=== PATIENT | female | born 1995 | race Caucasian/White ===

== ENCOUNTER 2022-11-10 06:15 | Day surgery (SDC) | payer OTHER, SELFPAY ==
[2022-11-10] VITALS (7 sets, daily range): BP systolic 107–115; BP diastolic 62–74; PULSE 74–82; RESP 16–18; TEMP 36.5–36.8; O2SAT 94–100; BMI 32.1
[2022-11-10] MEDS: ETHYL CHLORIDE 1 APPLICATION 1 APPLIC TOPICAL (07:00)
[2022-11-10] MEDS: BUPIVACAINE 0.5% 30 ML INJECTION (07:00)
--- NOTE | 2022-11-10 07:11 | SUR.PREOP ---
SAME DAY SURGERY LOCAL INJECTION SITE VERIFICATION WAS PERFORMED BY SURGEON/PA AND PATIENT PRIOR TO LOCAL ANESTHETIC BEING INJECTED TO OPERATIVE SITE.
--- NOTE | 2022-11-10 08:04 | PM.ORPRC ---
Procedure Note Date of procedure: 11/10/22 Procedure: PREOPERATIVE DIAGNOSIS: 1. Left carpal tunnel syndrome POSTOPERATIVE DIAGNOSIS: 1. Left carpal tunnel syndrome PROCEDURE: 1. Left open carpal tunnel release SURGEON: Sean Rico MD. COMMERCIAL LOAN MANAGER: YESSENIA Roach ANESTHESIA: Local anesthetic (50:50 mixture of 2% lidocaine with epi and 0.5% marcaine plain) IMPLANTS: None EBL: 2 mL TOURNIQUET: None COMPLICATIONS: None evident INDICATIONS: The patient is a pleasant 27-year-old female who has experienced left hand numbess/tingling affecting the radial 3.5 digits for multiple months. It has progressively gotten worse. 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 Nonoperative management has been tried and failed, and therefore surgery was recommended. DESCRIPTION OF PROCEDURE: Following a thorough discussion of risks, benefits, and alternatives consent was obtained and the operative extremity was marked. The patient was brought to the operating room and placed supine on the operating table. Local anesthesia induction was undertaken in preop holding. No antibiotics were administered as this was planned to be a local case only. Proper time-out was performed identifying proper patient, site, and procedure. The operative extremity was prepped and draped in the appropriate sterile fashion using ChloraPrep. An incision was made in line with the radial border of the ring finger beginning 1 cm distal to the distal wrist crease and progressing for another 2.5cm distal. Caution was taken to stay proximal to Renee's cardinal line. Sharp incision through the skin, subcutaneous tissue, and palmar fascia was performed. The thenar musculature was bluntly elevated off the transverse carpal ligament. The ligament was directly visualized, and divided sharply with a 15 blade. This was released from its most proximal to the most distal extent. Metzenbaum scissor was also utilized to release the fascia extension proximally. We confirmed complete release of the transverse carpal ligament. Closure was performed with 4-O nylon in interrupted fashion. Soft dressings were applied, and the patient was transferred to the recovery room in stable condition. PLAN: 1. Encourage elevation of the operative extremity. 2. Range of motion of the fingers and hand/wrist as tolerated. 3. Ibuprofen/acetaminophen and/or Percocet as needed for pain control. 4. Follow up with PA visit or nurse visit in 12-16 days for wound check and suture removal.
[2022-11-10] MEDS: NEOMYCIN/BACITRACIN/POLYMYXIN B 1 APPLIC TOPICAL (08:05)
== END 2022-11-10 08:46 | disposition home or self-care (01) ==
PROVIDERS: PCP Advanced Practice Midwife; Visit Provider Orthopaedic Surgery Sports Medicine
PROC: (CPT 64721; principal; 2022-11-10 07:30)
DX: G56.02 Carpal tunnel syndrome, left upper limb (principal)
CPT/HCPCS: 64721; J3490

== ENCOUNTER 2023-01-05 06:37 | Day surgery (SDC) | payer OTHER, SELFPAY ==
[2023-01-05] VITALS (8 sets, daily range): BP systolic 106–117; BP diastolic 59–75; PULSE 68–80; RESP 12–16; TEMP 36.6–36.7; O2SAT 97–100; BMI 32.1
[2023-01-05] MEDS: BUPIVACAINE 0.5% 30 ML INJECTION (07:10)
--- NOTE | 2023-01-05 07:52 | PM.ORPRC ---
Procedure Note Date of procedure: 01/05/23 Procedure: PREOPERATIVE DIAGNOSIS: 1. Right carpal tunnel syndrome POSTOPERATIVE DIAGNOSIS: 1. Right carpal tunnel syndrome PROCEDURE: 1. Right open carpal tunnel release SURGEON: Sean Rico MD. MOLDING MACHINE OPERATOR: Kimani Carter PA-C ANESTHESIA: Local anesthetic (50:50 mixture of 1% lidocaine with epi and 0.5% marcaine plain) - 10ml total IMPLANTS: None EBL: 2 mL TOURNIQUET: None COMPLICATIONS: None evident INDICATIONS: The patient is a pleasant 27-year-old female who has experienced right hand numbess/tingling affecting the radial 3.5 digits for multiple months. It has progressively gotten worse. Nonoperative management has been tried and failed, and therefore surgery was recommended. Of note, she had the contralateral left open carpal tunnel release approximately 2 months ago. She notes she feels tremendously better on that side already. Less numbness tingling. Less pain/discomfort. DESCRIPTION OF PROCEDURE: Following a thorough discussion of risks, benefits, and alternatives consent was obtained and the operative extremity was marked. The patient was brought to the operating room and placed supine on the operating table. Local anesthesia induction was undertaken in preop holding. No antibiotics were administered as this was planned to be a local case only. Proper time-out was performed identifying proper patient, site, and procedure. The operative extremity was prepped and draped in the appropriate sterile fashion using ChloraPrep. An incision was made in line with the radial border of the ring finger beginning 1 cm distal to the distal wrist crease and progressing for another 2.5cm distal. Caution was taken to stay proximal to Renee's cardinal line. Sharp incision through the skin, subcutaneous tissue, and palmar fascia was performed. The thenar musculature was bluntly elevated off the transverse carpal ligament. The ligament was directly visualized, and divided sharply with a 15 blade. This was released from its most proximal to the most distal extent. Metzenbaum scissor was also utilized to release the fascia extension proximally. We confirmed complete release of the transverse carpal ligament. Closure was performed with 4-O nylon in interrupted fashion. Soft dressings were applied, and the patient was transferred to the recovery room in stable condition. PLAN: 1. Encourage elevation of the operative extremity. 2. Range of motion of the fingers and hand/wrist as tolerated. 3. Ibuprofen/acetaminophen and/or Percocet as needed for pain control. 4. Follow up with PA visit or nurse visit in 12-16 days for wound check and suture removal.
[2023-01-05] MEDS: NEOMYCIN/BACITRACIN/POLYMYXIN B 1 APPLIC TOPICAL (08:00)
== END 2023-01-05 08:16 | disposition home or self-care (01) ==
PROVIDERS: PCP Advanced Practice Midwife; Visit Provider Orthopaedic Surgery Sports Medicine
PROC: (CPT 64721; principal; 2023-01-05 07:45)
DX: G56.01 Carpal tunnel syndrome, right upper limb (principal)
CPT/HCPCS: 64721; J3490

== ENCOUNTER 2023-09-21 10:49 | Outpatient (CLI) | payer OTHER, SELFPAY | END 2023-09-21 10:50 | disposition home or self-care (01) | PROVIDERS: PCP Advanced Practice Midwife; Visit Provider Advanced Practice Midwife | DX: Z13.220 Encounter for screening for lipoid disorders (principal) | CPT/HCPCS: 80061 ==

== ENCOUNTER 2024-02-22 16:42 | Emergency (ER) | payer OTHER, SELFPAY ==
[2024-02-22 17:37] VITALS: BP 110/73; PULSE 95; RESP 18; TEMP 36.7; O2SAT 100; BMI 32.1
--- NOTE | 2024-02-22 18:13 | XR_ITS ---
Patient: VIVIENNE LARKIN Facility:?[facility] Patient ID:?[id number] Site Patient ID:?[id number]. Site :?1994 Study:?XRay-Extremity Left 3 VIEWS-02/22/2024 6:33:10 PM Ordering Physician:HILTON Final Report: Indication: Trauma. Technique: Left foot, 3 views. Comparison: None. Findings: Bones: Alignment is normal. No fractures or bone lesions. Joint spaces: Unremarkable. Soft tissues: Unremarkable. Impression: No sign of acute injury. Dictated by Aidan Blanc MD @ 02/22/2024 7:02:16 PM Signed by:?Aidan Blanc MD @02/22/2024 7:02:16 PM (Electronic Signature)
--- NOTE | 2024-02-22 19:19 | ED_ITS ---
HPI - Extremity Injury (Lower) General Date Seen: 02/22/24 Chief Complaint: Extremity Pain/Injury, Lower Stated Complaint: L foot injury Time Seen by Provider: 02/22/24 19:12 Source: patient Mode of arrival: ambulatory Limitations: no limitations History of Present Illness HPI Narrative: Patient is a 28-year-old female presenting for left foot pain. She states about 16:30 her horse stepped on her foot and has since had lot of pain to the top of the foot. Does have some pain with movement of her toes but is able to move it. Denies any numbness. States pain is just to the top of the foot where the horse stepped. No other injuries noted. Related Data Previous Rx's Medication Instructions Recorded escitalopram oxalate 20 mg tablet 20 mg PO QDAY #90 tabs 11/30/23 (Lexapro) Allergies Allergy/AdvReac Type Severity Reaction Status Date / Time No Known Allergies Allergy Verified 10/06/23 09:59 Review of Systems Narrative: Pertinent systems reviewed and were negative unless stated in HPI PFSH PFSH Medical History Anxiety ?F41.9 - Anxiety disorder, unspecified (ICD-10) Depression ?F32.A - Depression, unspecified (ICD-10) Surgical History History of carpal tunnel surgery of right wrist (01/05/23) ?Z98.890 - Other specified postprocedural states (ICD-10) History of carpal tunnel surgery of left wrist (11/10/22) ?Z98.890 - Other specified postprocedural states (ICD-10) Family History Paternal Grandmother Breast cancer Diabetes Paternal Grandfather Diabetes Social History What is your current living situation?: I presently have a place to live Problems where you live: no known problems In the past 12 months, utilities in danger of being shut off: no In past 12 months, lack of transportation kept you from medical appts, meetings, work, or getting things needed for daily living: no In the past 12 mos, have been you worried that your food would run out before you had money to buy more?: sometimes true In the past 12 mos, the food you bought just didn't last and you didn't have money to buy more?: never true Smoking Status: Never smoker How often does anyone, including family, friends and others, physically hurt you : never How often does anyone, including family, friends and others, insult or talk down to you: never How often does anyone, including family, friends and others, threaten you with harm: never How often does anyone, including family, friends and others, scream or curse at you: never Little interest or pleasure in doing things: several days Feeling down, depressed, or hopeless: more than half the days Exam Narrative: Exam Narrative: Const: Well-nourished, Well-developed, in mild distress Eyes: PERRL, no conjunctival injection, and symmetrical lids HENT: Atraumatic external nose and ears. Moist mucous membranes. MSK:Extremities w/o deformity, Normal Active ROM, tenderness to palpation to the top of the left foot about 2 cm proximal to the great toe. No tenderness noted to the sole of the foot. Skin: Warm, Dry. No rashes or lesions. Neuro: Normal Muscle tone, No focal neurological deficits. Psych: Awake, Alert, & Oriented x3. Appropriate mood and affect. Const: Vital Signs, click to edit/add: Vital Signs - 24 hr 02/22/24 17:37 Temperature 98.1 F Pulse Rate [Right Pulse Oximeter] 95 Respiratory Rate 18 Blood Pressure [Ri ght Upper Arm] 110/73 Pulse Oximetry 100 Oxygen Delivery Me thod Room Air Course Vital Signs Vital signs: Initial Vital Signs Temperature 98.1 F 02/22/24 17:37 Temperature Source Temporal Artery Scan 02/22/24 17:37 Pulse Rate 95 02/22/24 17:37 Respiratory Rate 18 02/22/24 17:37 Blood Pressure 110/73 02/22/24 17:37 Blood Pressure Mean 85 02/22/24 17:37 Blood Pressure Position Sitting 02/22/24 17:37 Pulse Oximetry 100 02/22/24 17:37 Oxygen Delivery Method Room Air 02/22/24 17:37 Vital Signs Temperature 98.1 F 02/22/24 17:37 Pulse Rate 95 02/22/24 17:37 Respiratory Rate 18 02/22/24 17:37 Blood Pressure 110/73 02/22/24 17:37 Pulse Oximetry 100 02/22/24 17:37 Oxygen Delivery Method Room Air 02/22/24 17:37 Temperature 98.1 F 02/22/24 17:37 Pulse Rate 95 02/22/24 17:37 Respiratory Rate 18 02/22/24 17:37 Blood Pressure 110/73 02/22/24 17:37 Pulse Oximetry 100 02/22/24 17:37 Oxygen Delivery Method Room Air 02/22/24 17:37 MDM - Extremity Injury (Lower) MDM Narrative Medical decision making narrative: Patient is a 28-year-old female presenting after a horse stepped on her foot. She is neurovascular intact. X-rays reviewed by myself and the radiologist showing no acute fractures. She is otherwise doing well. Will be given an Arnaldo wrap and will be discharged home. She is agreeable to this plan. Imaging Data Left foot x-ray: Attestation: I have reviewed the pertinent imaging results. Radiologist's impression: No sign of acute injury. Dictated by Aidan Blanc MD @ 02/22/2024 7:02:16 PM Discharge Plan Discharge Clinical Impression: Strain of foot, left Qualifiers: Encounter type: initial encounter Qualified Code(s): S96.912A - Strain of unspecified muscle and tendon at ankle and foot level, left foot, initial encounter Patient Disposition: Home, Self-Care Condition: Stable Instructions: Foot Sprain (ED) Additional Instructions: Take Tylenol and ibuprofen for pain. Use the Arnaldo wrap as needed for comfort. You are able to have full weight-bearing to that foot with no restrictions. Prescriptions: No Action escitalopram oxalate [Lexapro] 20 mg tablet 20 mg PO QDAY Qty: 90 3RF Follow Up/Referrals: Ankush Lynch MD [Primary Care Provider] - Stand Alone Forms: [facility] [employer] Info Instructions
--- OUTSIDE RECORDS SUMMARY | 2024-02-22 19:32 | XMS_ITS | Clinical Summary ---
Author Name Unknown Organization [facility] Address [place], [place] [address] Care Team Providers Care Drill Press Set Up Operator Radial Name Role Phone Reyes Soni MD Primary Care Provider Allergies No known active allergies Medications Medication Sig Dispensed Refills Start Date End Date Status ondansetron (ZOFRAN ODT) 4 mg disintegrating tabletIndications:Vomi ting during Place 1 tablet on the tongue every 8 hours if needed for Nausea/Vomiting. 10 tablet 05/23/2020 Active ondansetron (ZOFRAN ODT) [address] 1 tablet on the tongue every 6 hours if needed for nausea or vomiting 30 tablet 3 05/28/2020 Active Active Problems Problem Noted Date Diagnosed Date Attention deficit disorder without mention of hy peractivity 06/26/2009 Anxiety state, unspecified 06/26/2009 Unspecified adjustment reaction 06/12/2009 Overview: Further assessment for ADHD Immunizations Name Administration Dates Next Due DTP-HIB 1994,1994,1994 DTaP 09/22/1995 HIB HbOC (HibTITER) 09/22/1995 Hepatitis B (Peds) 07/02/1999,03/01/1999, 999 MMR 07/17/2000,11/03/1995 Oral Polio Vaccine 1994,1994, 994 Tdap 02/05/2006 Social History Tobacco Use Types Packs/Day Years Used Date Smoking Tobacco: Former Comments:smokes outside at m oms and at Dads house its inside Alcohol Use Standard Drinks/Week Comments Not Asked 0 (1 standard drink = 0.6 oz pur e alcohol) Sex and Gender Information Value Date Recorded Sex Assigned at Not on file Gender Identity Not on file Sexual Orientation Not on file Obstetrics History Para Term AB IAB SAB Ectopic Multiple Livin g Live Births 1 Date Outcome GA Total Labor Labor/2nd/3rd Weight Sex Delivery Anes PTL Abeba A1 A5 Name Cl in Last Filed Vital Signs Vital Sign Reading Time Taken Comments Blood Pressure 111/69 05/23/2020 5:03 PM CDT Pulse 75 05/23/2020 5:03 PM CDT Temperature 37.2 ??C (99 ??F) 05/23/2020 5:03 PM CDT Respiratory Rate 18 05/23/2020 5:03 PM CDT Oxygen Saturation 99% 05/23/2020 5:03 PM CDT Inhaled Oxygen Concentration - - Weight 72.9 kg (160 lb 11.2 oz) 05/23/2020 5:03 PM CDT Height 157.5 cm (5' 2) 05/23/2020 5:03 PM CDT Body Mass Index 29.39 05/23/2020 5:03 PM CDT Plan of Treatment Health Maintenance Due Date Last Done Comments Depression screening for age 12+ 2006 HIV for age 15-65 2009 BMI (ht and wt on same day) for age 18+ 2012 Hepatitis C screening for ag e 18-79 2012 Tetanus booster 02/06/2016 02/05/2006 COVID-19 vaccine series (2022- season) 2023 Pap test for age 21-65 01/26/2024 01/25/2021 Influenza for age 9-49 07/03/2024 Tdap Completed 02/05/2006 Pneumococcal series for age 6-64 Aged Out No longer eligible based on patient's age to complete this topic Procedures Procedure Name Priority Date/Time Associated Diagnosis Comments DRAG DOWN THIN PREP PAP SCREEN IMAGED Routine 01/25/2021 10:55 AM CDT from Last 3 Months or Most Recently Relevant to Health Maintenance Results * DRAG DOWN THIN PREP PAP SCREEN IMAGED (01/25/2021 10:55 AM CDT) Case Report Gynecologic Cytology Report ? Case: [id number] ? Authorizing Provider: ??Dora Boateng, LOREN ? Collected: ? 01/25/2021 1055 ? Ordering Location: ? [facility] ?Received: ?01/28/2021 1023 ? First Screen: ?Dayton Cobos ? Specimen: ?DRAG DOWN ThinPrep Vial Screening, Cervical/Vaginal ? 02/05/2021 10:47 AM CDT [facility]- ENTRAL LAB[facility]ATORY INTERPRETATION/ RESULT NEGATIVE FOR INTRAEPITHELIAL LESION OR MALIGNANCY (NIL) (none) 02/05/2021 10:47 AM CDT [facility]- ENTRAL LABORATORY IMEN ADEQUACY Satisfactory for evaluation Endocervical component present 02/05/2021 10:47 AM CDT [facility]AL LAB[facility] HPV REQUEST HPV if ASCUS 02/05/2021 10:47 AM CDT [facility] Date of LMP 02/05/2021 10:47 AM CDT [facility]- ENTRAL LABORATORY Comment:NA Menstrual Status 02/05/2021 10:47 AM CDT [facility]- ENTRAL [facility] Additional Information 02/05/2021 10:47 AM CDT [facility]- ENTRAL LABORATORY Comment: Interpreted at [facility] - [address], [place] [address] Automated Review Successful 02/05/2021 10:47 AM CDT [facility] Comment:Specimen processed s uccessfully by automated wood turner device, ThinPrep Imaging System, [employer] Note The pap test is a screening technique, not a diagnostic procedure. It is used primarily to screen for squamous cancers and precursor lesions. Published studies have shown that it is subject to both false negative and false positive results. The pap test should not be used as the sole means to diagnose or exclude pre-malignant and malignant lesions. 02/05/2021 10:47 AM CDT [facility] Other (Cervical/Vagina l) 01/25/2021 10:55 AM CDT 01/28/2021 10:23 AM CDT Dora Boateng CNM PATHOLOGY/CYTOLOGY [facility] [address] [place] [address], from Last 3 Months or Most Recently Relevant to Health Maintenance Care Teams Drill Press Set Up Operator Radial Relationship Specialty Start Date End Date Reyes Soni MD PCP - General Obstetrics and Gynecology 05/23/20
== END 2024-02-22 19:56 | disposition home or self-care (01) ==
LOC: ED 19:31
PROVIDERS: Emergency Provider Student in an Organized Health Care Education/Training Program; PCP Family Medicine
DX: S96.912A Strain of unspecified muscle and tendon at ankle and foot level, left foot, initial encounter (principal); W55.12XA Struck by horse, initial encounter
CPT/HCPCS: 73630; 99282; 99283

== ENCOUNTER 2024-08-24 10:21 | Emergency (ER) | payer OTHER, SELFPAY ==
[2024-08-24 10:34] VITALS: BP 115/83; PULSE 90; RESP 18; TEMP 36.7; O2SAT 98; BMI 33.6
--- NOTE | 2024-08-24 11:09 | ED_ITS ---
HPI - General Adult General Chief complaint: Extremity Pain/Injury, Upper Stated complaint: left side pain-horse accident thursday Time Seen by Provider: 08/24/24 11:09 History of Present Illness HPI narrative: horse fell on patients left side, mostly on left leg. This happened on Thursday evening. Right thumb also injured. 29 Year old woman presenting to the emergency department with complaint of left leg and right thumb pain. Fell from horse 2 days ago. Not really with any abdominal pain. No shortness of breath. No pleuritic pain. No complaint of neck or back pain. Having pain in the left shoulder and base of the right thumb. Does have some pain in her left leg and notes some bruising but is able to ambulate without significant difficulty. Thought she should get checked out. Has been using a soft thumb spica like wrist splint on the right hand. Review of records shows a history of bilateral carpal tunnel procedures. Unfortunately horse broke it's leg. I understand had to be put down Related Data Previous Rx's ?Medication ?Instructions ?Recorded escitalopram oxalate 20 mg tablet 20 mg PO QDAY #90 tabs 11/30/23 (Lexapro) Allergies Allergy/AdvReac Type Severity Reaction Status Date / Time No Known Allergies Allergy Verified 08/24/24 10:42 Review of Systems Status of ROS: Reports: 6 or more systems reviewed and unremarkable except as noted in History and below [facility] Medical History Anxiety ?F41.9 - Anxiety disorder, unspecified (ICD-10) Depression ?F32.A - Depression, unspecified (ICD-10) Surgical History History of carpal tunnel surgery of right wrist (01/05/23) ?Z98.890 - Other specified postprocedural states (ICD-10) History of carpal tunnel surgery of left wrist (11/10/22) ?Z98.890 - Other specified postprocedural states (ICD-10) Family History Paternal Grandmother Breast cancer Diabetes Paternal Grandfather Diabetes Social History What is your current living situation?: I presently have a place to live Problems where you live: no known problems In the past 12 months, utilities in danger of being shut off: no In past 12 months, lack of transportation kept you from medical appts, meetings, work, or getting things needed for daily living: no In the past 12 mos, have been you worried that your food would run out before you had money to buy more?: sometimes true In the past 12 mos, the food you bought just didn't last and you didn't have money to buy more?: never true Smoking Status: Never smoker How often do you have a drink containing alcohol: never How often do you have six or more drinks on one occasion: Never AUDIT-C Alcohol total score: 0 Non-prescribed substance use: denies use How often does anyone, including family, friends and others, physically hurt you : never How often does anyone, including family, friends and others, insult or talk down to you: never How often does anyone, including family, friends and others, threaten you with harm: never How often does anyone, including family, friends and others, scream or curse at you: never Little interest or pleasure in doing things: several days Feeling down, depressed, or hopeless: more than half the days Exam Narrative: Exam Narrative: Pleasant. NAD. Skin is warm and dry. Neck is supple nontender. Back nontender. Sore to palpation about the left shoulder. Intact though sore resisted external rotation. Internal rotation also causes some pain. Negative empty can and Neer's though just sore. No discrete AC joint area pain. Sore to palpation over the anterior upper humerus. No discrete scapular pain. Lungs are clear. No supraclavicular crepitus. Intact peripheral sensation and well- perfused. Right thumb is a little swollen and sore to palpation particularly about the MCP joint. Intact to resisted flexion extension. Abdomen soft nontender. The left leg with some bruising superior lateral to the left knee. Const: Vital Signs, click to edit/add: Vital Signs - 24 hr 08/24/24 10:34 Temperature 98.1 F Pulse Rate [Pulse Oximeter] 90 Respiratory Rate 18 Blood Pressure [Ri ght Upper Arm] 115/83 Pulse Oximetry 98 Oxygen Delivery Me thod Room Air Documenting provider has reviewed patient's vital signs: yes Course Vital Signs Vital signs: Initial Vital Signs Temperature 98.1 F 08/24/24 10:34 Temperature Source Oral 08/24/24 10:34 Pulse Rate 90 08/24/24 10:34 Respiratory Rate 18 08/24/24 10:34 Blood Pressure 115/83 08/24/24 10:34 Blood Pressure Mean 93 08/24/24 10:34 Blood Pressure Position Sitting 08/24/24 10:34 Pulse Oximetry 98 08/24/24 10:34 Oxygen Delivery Method Room Air 08/24/24 10:34 Vital Signs Temperature 98.1 F 08/24/24 10:34 Pulse Rate 90 08/24/24 10:34 Respiratory Rate 18 08/24/24 10:34 Blood Pressure 115/83 08/24/24 10:34 Pulse Oximetry 98 08/24/24 10:34 Oxygen Delivery Method Room Air 08/24/24 10:34 Temperature 98.1 F 08/24/24 10:34 Pulse Rate 90 08/24/24 10:34 Respiratory Rate 18 08/24/24 10:34 Blood Pressure 115/83 08/24/24 10:34 Pulse Oximetry 98 08/24/24 10:34 Oxygen Delivery Method Room Air 08/24/24 10:34 Medical Decision Making MDM Narrative Medical decision making narrative: I would suspect more of joint sprains/strains along with bruising otherwise. Certainly possible there is some small avulsion fractures present. Would be worth imaging the thumb and the shoulder. Does not seem to have sustained significant injury otherwise. Two days out now. X-ray of the right thumb reviewed by me does not appear to show any bony abnormality. X-ray of the right shoulder shows located joint. I do not appreciate any widening of the AC joint. No bony abnormality appreciated. I did place a quality thumb spica splint on the right hand. This does appear to help with symptoms. Given an arm sling for the left arm/shoulder. See patient discharge plan for further discussion Medical Records Medical records reviewed: Yes I reviewed the patient's medical records Discharge Plan Discharge Clinical Impression: Contusion, Sprain of hand, thumb, right, Left shoulder strain Additional Instructions: See handout on shoulder rehabilitation/exercises. Wear the arm sling as needed for comfort over this next week. Place an ice pack to your thumb couple of times daily over the next few days. Wear this thumb spica splint also for comfort over the next week. Follow-up if simply not improved in 10 days. Prescriptions: No Action escitalopram oxalate [Lexapro] 20 mg tablet 20 mg PO QDAY Qty: 90 3RF Follow Up/Referrals: Provider,Not a Local [Primary Care Provider] - Stand Alone Forms: [employer] Info Instructions
--- NOTE | 2024-08-24 11:27 | CRLHL7_ITS ---
For Patients: As a result of the Century Cures Act, medical imaging exams and procedure reports are released immediately into your electronic medical record. You may view this report before your referring provider. If you have questions, please contact your health care provider. Indication: Generalized shoulder pain fall from horse. Technique: Three view(s) of the left shoulder. Comparison: None available. Findings: Glenohumeral and acromioclavicular alignment are anatomic and joint spaces are maintained. No acute fracture. No Hill-Sachs deformity or evidence of osseous Bankart lesion. Visualized left lung is clear. Impression: No acute osseous abnormality identified. Dictated by Sobia Munroe MD @ 08/24/2024 11:57:08 AM (Electronically Signed)
--- NOTE | 2024-08-24 11:27 | CRLHL7_ITS ---
For Patients: As a result of the Cures Act, medical imaging exams and procedure reports are released immediately into your electronic medical record. You may view this report before your referring provider. If you have questions, please contact your health care provider. Indication: Metacarpophalangeal joint pain after horse accident. Technique: Three view(s) of the right thumb. Comparison: None available. Findings: Normal alignment and joint spaces. No acute fracture. Normal bone density. Soft tissues are unremarkable. Impression: No acute osseous abnormality identified. Dictated by Sobia Munroe MD @ 08/24/2024 11:58:04 AM (Electronically Signed)
--- OUTSIDE RECORDS SUMMARY | 2024-08-24 11:38 | XMS_ITS | Clinical Summary ---
Author Organization [facility] Address [place], [place] [address] Care Team Providers Care Boat Hand Name Role Phone Reyes Soni MD Primary [...] state, unspecified 06/26/2009 Unspecified adjustment reaction 06/12/2009 Overview (06/12/2009): Further assessment for ADHD Immunizations Name Administration [...] Outcome GA Total Labor Labor/2nd/3rd Weight Sex Type Anes PTL Abeba A1 A5 Name Clin Last Filed Vital Signs Vital Sign Reading [...] e 18-79 2012 Tetanus booster 02/06/2016 02/05/2006 Pap test for age 21-65 01/26/2024 01/25/2021 COVID-19 vaccine series (2023- season) 2024 Influenza for age 9-49 07/03/2024 Tdap Completed 02/05/2006 Pneumococcal series for age 6-64 Aged Out No longer eligible based on patient's age to complete this topic Procedures Procedure Name Priority Date/Time Associated Diagnosis Comments LENS EDGE GRINDER MACHINE THIN PREP PAP SCREEN IMAGED Routine 01/25/2021 10:55 AM CDT from Last 3 Months or Most Recently Relevant to Health Maintenance Results * LENS EDGE GRINDER MACHINE THIN PREP PAP SCREEN IMAGED (01/25/2021 10:55 AM CDT) Case Report Gynecologic Cytology Report ? Case: [id number] ? Authorizing Provider: ??Dora Boateng, LOREN ? Collected: ? 01/25/2021 1055 ? Ordering Location: ? [facility] ?Received: ?01/28/2021 1023 ? First Screen: ?Dayton Cobos ? Specimen: ?LENS EDGE GRINDER MACHINE ThinPrep Vial Screening, Cervical/Vaginal ? 02/05/2021 10:47 AM [facility]- ENTRAL LABORATORY INTERPRETATION/ RESULT NEGATIVE FOR INTRAEPITHELIAL LESION OR MALIGNANCY (NIL) (none) 02/05/2021 10:47 AM [facility] IMEN ADEQUACY Satisfactory for evaluation Endocervical component present 02/05/2021 10:47 AM CDT [facility]- ENTRAL LABORATORY HPV REQUEST HPV if ASCUS 02/05/2021 10:47 AM [facility] Date of LMP 02/05/2021 10:47 AM [facility] Comment:NA Menstrual Status 02/05/2021 10:47 AM CDT [facility] EN[facility] Additional Information 02/05/2021 10:47 AM CDT [facility] [email or web address] LABORATORY-C ENTRAL LABORATORY Comment: Interpreted at [facility], Central Laboratory - [address], [place] [address] Automated Review Successful 02/05/2021 10:47 AM CDT [facility]-C ENTRAL LABORATORY Comment:Specimen processed s uccessfully by automated preventive medicine physician device, [employer], [employer] Note The pap test is a [...] and malignant lesions. 02/05/2021 10:47 AM CDT [facility]- ENTRWV LABORATORY Other (Cervical/Vagina l) 01/25/2021 10:55 AM CDT 01/28/2021 10:23 AM CDT Dora Boateng CN PATHOLOGY/CYTOLOGY [facility]-CENTRAL LABORATORY [address] [place] [address], [place] from Last 3 Months or Most Recently Relevant to Health Maintenance Care Teams Boat Hand Relationship Specialty Start Date End Date Reyes Soni MD PCP - General Obstetrics and Gynecology 05/23/20
== END 2024-08-24 12:26 | disposition home or self-care (01) ==
PROVIDERS: Emergency Provider Family Medicine
DX: S63.601A Unspecified sprain of right thumb, initial encounter (principal); S46.912A Strain of unspecified muscle, fascia and tendon at shoulder and upper arm level, left arm, initial encounter
CPT/HCPCS: 29125; 73030; 73140; 99283; 99284

== ENCOUNTER 2024-12-13 09:51 | Outpatient (CLI) | payer BC, SELFPAY ==
[2024-12-13 13:33] LABS: Chlamydia DNA Amplified* NOT DETECTED (No Detected); GC DNA Amplified* NOT DETECTED (No Detected)
[2024-12-23 04:38] LABS: HPV Source Cervix; HPV, High Risk by TMA Not Detected
== END 2024-12-13 09:52 | disposition home or self-care (01) ==
PROVIDERS: Visit Provider Midwife
DX: Z11.3 Encounter for screening for infections with a predominantly sexual mode of transmission (principal); Z12.4 Encounter for screening for malignant neoplasm of cervix
CPT/HCPCS: 87491; 87591; 87624; 87625; 88141; 88142

== ENCOUNTER 2025-10-17 13:43 | Outpatient (CLI) | payer OTHER, SELFPAY | END 2025-10-17 13:44 | disposition home or self-care (01) | PROVIDERS: Visit Provider Physician Assistant | DX: L68.0 Hirsutism (principal); Z13.9 Encounter for screening, unspecified | CPT/HCPCS: 82627; 84403; 84443 ==